=== PATIENT | male | born 1990 | race Caucasian/White ===

== ENCOUNTER 2018-06-14 14:44 | Emergency (ER) | payer BC, OTHER ==
[2018-06-14] MEDS ORDERED: ONDANSETRON INJ 4 MG/2 ML VIAL IV ONE (14:51)
[2018-06-14 14:57] VITALS: TEMP 98
--- NOTE | 2018-06-14 15:37 | ED.PDOC ---
History of Present Illness - General Chief Complaint: Neuro Symptoms/Deficits Stated Complaint: Siezure s/sx Time Seen by Provider: 06/14/18 14:47 Source: patient, family Exam Limitations: no limitations - History of Present Illness Initial Comments: Patient presents after a witnessed seizure. His mother saw him fall to the ground and start shaking. It lasted about 5 minutes. The patient does not remember the event. He has no history of seizures. He has vomited 3 times before presentation and is still nauseous. He denies any pain except a generalized aching headache. Denies photophobia or paresthesias. No other complaints. Timing/Duration: momentarily Severity: moderate Improving Factors: nothing Worsening Factors: nothing Associated Symptoms: nausea/vomiting Allergies/Adverse Reactions: Allergies NO KNOWN ALLERGY Allergy (Verified 06/14/18 14:57) Home Medications: Ambulatory Orders Amphetamine-Dextroamphetamine [Adderall 10 mg] 1 tab PO DAILY 06/14/18 Bupropion HCl [Wellbutrin Xl] 300 mg PO DAILY 06/14/18 Pantoprazole Sodium 40 mg PO DAILY 06/14/18 Venlafaxine HCl [Venlafaxine HCl ER] 225 mg PO DAILY 06/14/18 Review of Systems - Review of Systems Constitutional: States: see HPI EENTM: States: no symptoms reported Respiratory: States: no symptoms reported Cardiology: States: no symptoms reported Gastrointestinal/Abdominal: States: no symptoms reported Genitourinary: States: no symptoms reported Musculoskeletal: States: no symptoms reported Skin: States: no symptoms reported Neurological: States: see HPI Endocrine: States: no symptoms reported Hematologic/Lymphatic: States: no symptoms reported Past Medical History (General) - Patient Medical History Hx Seizures: - Seizure activity, 06/14/18 Hx Stroke: No Hx Congestive Heart Failure: No Hx Diabetes: No Hx MRSA: No - Vaccination History Hx Tetanus, Diphtheria Vaccination: No Hx Influenza Vaccination: No Hx Pneumococcal Vaccination: No - Social History Hx Tobacco Use: No Hx Alcohol Use: No Family Medical History - Family History Father Family History: Unknown Living Status: Still Living Physical Exam - Physical Exam General Appearance: Alert Eye Exam: bilateral normal Ears, Nose, Throat: normal ENT inspection Neck: non-tender, full range of motion, supple Respiratory: lungs clear, normal breath sounds Cardiovascular/Chest: normal peripheral pulses, regular rate, rhythm, no edema Gastrointestinal/Abdominal: normal bowel sounds, non tender, soft Back Exam: normal inspection, no CVA tenderness, no vertebral tenderness Extremity: normal range of motion, non-tender, normal inspection 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, no motor/sensory deficits, alert, normal mood/affect, oriented x 3, other - Cerebellar tests normal Skin Exam: normal color Lymphatic: no adenopathy Progress - Progress Progress: 06/14/18 19:50 Laboratory Tests 06/14/18 06/14/18 06/14/18 15:03 15:03 15:03 WBC 13.1 H RBC 4.85 Hgb 14.4 Hct 44.4 MCV 91.5 MCH 29.7 MCHC 32.5 L RDW 16.2 H Plt Count 475 H MPV 7.0 L Absolute Neuts (auto) 6.00 Absolute Lymphs (auto) 6.00 H Absolute Monos (auto) 0.90 H Absolute Eos (auto) 0.10 Absolute Basos (auto) 0.10 Neutrophils % 45.6 Lymphocytes % 46.2 Monocytes % 6.6 Eosinophils % 1.1 Basophils % 0.5 Sodium 140 Potassium 3.9 Chloride 103 Carbon Dioxide 14 L* Anion Gap 26.9 H BUN 21 H Creatinine 1.48 H BUN/Creatinine Ratio 14.2 Random Glucose 81 Serum Osmolality 281.4 Calcium 9.7 Total Bilirubin 0.4 AST 41 ALT 37 Alkaline Phosphatase 108 Creatine Kinase 165 Serum Total Protein 8.6 H Albumin 4.8 Globulin 3.8 H Albumin/Globulin Ratio 1.3 TSH 2.05 Thyroxine (T4) 6.03 L Urine Color Urine Appearance Urine pH Ur Specific [place] Urine Protein Urine Glucose (UA) Urine Ketones Urine Blood Urine Nitrite Urine Bilirubin Urine Urobilinogen Ur Leukocyte Esterase Urine RBC Urine WBC Ur Epithelial Cells Urine Bacteria Urine Sperm Urine Opiates Screen Urine Barbiturates Ur Phencyclidine Scrn U Amphetamin/Meth Scrn U Benzodiazepines Scrn U Cocaine Metab Screen U Cannabinoids Screen 06/14/18 06/14/18 06/14/18 15:30 15:30 18:54 WBC RBC Hgb Hct MCV MCH MCHC RDW Plt Count MPV Absolute Neuts (auto) Absolute Lymphs (auto) Absolute Monos (auto) Absolute Eos (auto) Absolute Basos (auto) Neutrophils % Lymphocytes % Monocytes % Eosinophils % Basophils % Sodium 138 Potassium 3.7 Chloride 105 Carbon Dioxide 23 Anion Gap 13.7 BUN 20 H Creatinine 1.07 BUN/Creatinine Ratio 18.7 Random Glucose 87 Serum Osmolality 277.7 Calcium 8.8 Total Bilirubin AST ALT Alkaline Phosphatase Creatine Kinase Serum Total Protein Albumin Globulin Albumin/Globulin Ratio TSH Thyroxine (T4) Urine Color Yellow Urine Appearance Clear Urine pH 5.5 Ur Specific [place] >= 1.030 Urine Protein Trace Urine Glucose (UA) Negative Urine Ketones Trace Urine Blood Trace-intact H Urine Nitrite Negative Urine Bilirubin Negative Urine Urobilinogen 0.2 Ur Leukocyte Esterase Negative Urine RBC 1-3 Urine WBC 1-3 Ur Epithelial Cells 0 Urine Bacteria Rare Urine Sperm 3-5 Urine Opiates Screen Negative Urine Barbiturates Negative Ur Phencyclidine Scrn Negative U Amphetamin/Meth Scrn Positive H U Benzodiazepines Scrn Negative U Cocaine Metab Screen Negative U Cannabinoids Screen Negative CT head negative. Bicarbonate was low, likely due to a temporary lactic acid buildup during the seizure. Patient was given one liter IV NS x one. Labs returned to normal. Repeat neurological exam was normal. GCS 15. Patient told to stop taking the Wellbutrin and contact his regular doctor in the morning. Care instructions given. E.R. warnings given. Questions were elicited and answered. The patient voiced understanding and agreement with the plan. Departure - Departure Clinical Impression: Seizure Disposition: Discharge to Home or Self Care Condition: Good Departure Forms: ED Discharge - Pt. Copy, Patient Portal Self Enrollment Diet: resume usual diet Activity: increase activity as tolerated Referrals: Geronimo Lawler MD [Primary Care Provider] - 1-2 Weeks Home Medications: Ambulatory Orders Amphetamine-Dextroamphetamine [Adderall 10 mg] 1 tab PO DAILY 06/14/18 Bupropion HCl [Wellbutrin Xl] 300 mg PO DAILY 06/14/18 Pantoprazole Sodium 40 mg PO DAILY 06/14/18 Venlafaxine HCl [Venlafaxine HCl ER] 225 mg PO DAILY 06/14/18 Additional Instructions: Stop the buproprion (Wellbutrin). Call your primary physician in the morning and get an appointment as soon as possible. Return to the E.R. immediately for any further seizure activity.
--- NOTE | 2018-06-14 15:58 | RAD ---
EXAM DESCRIPTION: Chest,2 Views CLINICAL HISTORY: 28 years Male, loss of consciousness COMPARISON: None. FINDINGS: Chest radiographs show an unremarkable cardiomediastinal silhouette. The lungs appear clear. Regional bony structures appear intact as visualized. IMPRESSION: Unremarkable chest, with no evidence of acute cardiopulmonary disease. Electronically signed by: Rigoberto Witt MD 06/14/2018 3:55 PM [facility]
--- NOTE | 2018-06-14 15:59 | CT ---
EXAM DESCRIPTION: Head CLINICAL HISTORY: new onet seizure COMPARISON: None Available TECHNIQUE: Contiguous axial CT images of the head were obtained. Coronal and sagittal reconstructions were created from the axial data. This exam was performed according to our departmental dose-optimization program, which includes automated exposure control, adjustment of the mA and/or kV according to patient size and/or use of iterative reconstruction technique. FINDINGS: There is no evidence of acute mass, mass effect, midline shift or hemorrhage. The ventricles and extra-axial CSF spaces are unremarkable. The brain parenchyma appears normal for the patient's age. No acute abnormalities of the bones is seen. IMPRESSION: No acute intracranial abnormality. Electronically signed by: Zachariah Horne 06/14/2018 3:55 PM DIRECTOR OF FRONT OFFICE
--- NOTE | 2018-06-14 16:01 | CT ---
EXAM DESCRIPTION: CT CERVICAL SPINE CLINICAL HISTORY: fall COMPARISON: None Available. TECHNIQUE: Contiguous axial images of the cervical spine were obtained followed by reconstruction images.This exam was performed according to our departmental dose-optimization program, which includes automated exposure control, adjustment of the mA and/or kV according to patient size and/or use of iterative reconstruction technique. FINDINGS: There is no acute fracture or subluxation. The prevertebral soft tissues are within normal limits. IMPRESSION: No acute fracture or subluxation. Electronically signed by: Zachariah Horne 06/14/2018 3:58 PM [facility]
[2018-06-14] MEDS ORDERED: SODIUM CHLORIDE 0.9% 1000ML 1,000 ML IVS ONE (16:12)
[2018-06-14 20:11] VITALS: BP 125/88; O2SAT 97
== END 2018-06-14 20:08 | disposition home or self-care (01) ==
LOC: ER 14:44
DX: R56.9 Unspecified convulsions (principal); R11.2 Nausea with vomiting, unspecified; R51 Headache; Z79.899 Other long term (current) drug therapy
CPT/HCPCS: 36415; 70450; 71046; 72125; 80048; 80053; 80307; 81001; 82550; 84436; 84443; 85025; 93005; J7030

== ENCOUNTER → 2019-03-01 | Outpatient (CLI) | payer BC | LOC: GMAJS 11:44 | PROVIDERS: ATTEND Physician Assistant | DX: R94.8 Abnormal results of function studies of other organs and systems (principal) ==

== ENCOUNTER → 2019-05-17 | Outpatient (CLI) | payer BC | LOC: GMAE 14:48 | PROVIDERS: ATTEND Family Medicine | DX: D50.9 Iron deficiency anemia, unspecified (principal) ==

== ENCOUNTER 2019-10-07 22:26 | Emergency (ER) | payer BC ==
[2019-10-07 22:39] VITALS: TEMP 98.3
[2019-10-07] MEDS: SODIUM CHLORIDE 0.9% 1000ML 1,000 ML IVS ONE (22:47)
[2019-10-07] MEDS: ONDANSETRON INJ 4 MG/2 ML VIAL IV ONE (22:48)
--- NOTE | 2019-10-07 22:48 | ED.PDOC ---
History of Present Illness - General Chief Complaint: Neuro Symptoms/Deficits Time Seen by Provider: 10/07/19 22:35 Additional Information: Patient is a 29-year-old male who presents to the ED with his mother via private automobile with chief complaint of seizure just prior to arrival. Patient has a relatively new seizure diagnosis dating back approximately 1 year. Patient was seen in the ED for his previous seizure and had a normal head CT per mom but no diagnosis other than seizure was ever given. Mother indicates he has had 2 seizures that she knows of prior to this episode over the past several months. Today patient was playing video games sitting in his chair when his mother and father noted patient to have rhythmic tonic clonic activity. Patient's father went to the patient and braced him in the chair so that he would not injure himself and after approximately 5 minutes patient seizure stopped spontaneously. Mother denies any injury. Following the seizure patient was unresponsive and sleepy and parents placed him in the car and drove him to the ED. Patient's past medical history per mom is seizure, depression and reflux. She does not believe he takes any illicit street drugs. Patient is not on any antiseizure medications and mom indicates that patient has never seen a neurologist in the past because "he has never been told he needs one or referred to one". - History of Present Illness Allergies/Adverse Reactions: Allergies NO KNOWN ALLERGY Allergy (Verified 06/14/18 14:57) Home Medications: Ambulatory Orders Pantoprazole Sodium 40 mg PO DAILY 06/14/18 DULoxetine HCL [Cymbalta] 20 mg PO 10/07/19 Review of Systems - Review of Systems Unable to Obtain Due To: condition Past Medical History (General) - Patient Medical History Hx Seizures: Yes Hx Stroke: No Hx Dementia: No Hx Asthma: No Hx of COPD: No Hx Cardiac Disorders: No Hx Congestive Heart Failure: No Hx Pacemaker: No Hx Hypertension: No Hx Thyroid Disease: No Hx Diabetes: No Hx Gastroesophageal Reflux: Yes Hx Renal Disease: No Hx Cancer: No Hx of HIV: No Hx Hepatitis C: No Hx MRSA: No Surgical History: no surgical history - Vaccination History Hx Tetanus, Diphtheria Vaccination: No Hx Influenza Vaccination: No Hx Pneumococcal Vaccination: No Immunizations Up to Date: No - Social History Hx Tobacco Use: No Hx Chewing Tobacco Use: No Hx Alcohol Use: No Hx Substance Use: No Hx Substance Use Treatment: No Hx Depression: No Feels Threatened In Home Enviroment: No Feels Threatened In a Relationship: No Hx Physical Abuse: No Hx Emotional Abuse: No Hx Suspected Abuse: No - Female History Patient is a Female of Child Bearing Age (10 -59 yrs old): No Family Medical History - Family History Father Family History: Unknown Living Status: Still Living Physical Exam - Physical Exam General Appearance: Obese, Other - Patient is obtunded and postictal. He arouses to light sternal rub and then falls back asleep. Eye Exam: left normal ENT Exam: normal ENT inspection, pharynx normal Respiratory: chest non-tender, lungs clear, normal breath sounds, no respiratory distress, no accessory muscle use Cardiovascular/Chest: normal peripheral pulses, no edema, no gallop, no JVD, no murmur, tachycardia Peripheral Pulses: radial,right: 2+, radial,left: 2+ Gastrointestinal/Abdominal: normal bowel sounds, non tender, soft, no organomegaly Extremities Exam: non-tender Mental Status: other - Patient is oriented to person only, not to place or time. 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 Coordination/Gait: other - Unable to assess cerebellar function. Motor/Sensory: other - Patient moves all extremities to stimulus. Skin Exam: normal color, warm/dry Progress - Progress Progress: 10/07/19 22:5 Differential diagnosis includes but is not limited to breakthrough seizure, illicit substance abuse, electrolyte disorder, neoplasm 10/07/19 23:01 Patient is becoming particularly restless. Will give Ativan for agitation and to facilitate nursing collection of required tests. 10/08/19 00:20 Patient remains awake and agitated and he is slightly more coherent, answering simple questions but he is still grossly confused. Patient's head CT is unremarkable. Patient's WBC is 14.6 but patient has no fever and clinically I suspect this is a stress response to the seizure. Patient's electrolytes are abnormal with an elevated anion gap and decreased CO2. Patient's glucose is 167 and mom indicates that patient does not have a known history of diabetes but he does not see a doctor. 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 Patient's glucose level does not meet the definition of DKA but I have treated patient with 2 L of IV fluid and given him subcutaneous insulin. Patient will need transfer to a higher level of care for neurologist consultation for recurrent seizures that have not been evaluated, and for evaluation and treatment of possible DKA but at the very least new onset diabetes. Patient's heart rate is down into the low 100s and his blood pressure stable, patient is medically clear for transfer when accepted. 10/08/19 00:33 Nursing tells me that patient's repeat glucose fingerstick is now 67 and this is before he has received any insulin. Patient is not in DKA and most likely does not have diabetes but he is still very confused and not talking. I discussed case with Dr. Miguel at [facility] ED and he accepts patient in ED to ED transfer. - EKG/XRAY/CT Comments: EKG: Sinus tachycardia, rate 126, normal axis, normal QRS, normal ST and T Departure - Departure Clinical Impression: Seizure, Post-ictal state Disposition: Discharge to Home or Self Care Condition: Fair Departure Forms: ED Discharge - Pt. Copy, Patient Portal Self Enrollment Home Medications: Ambulatory Orders Pantoprazole Sodium 40 mg PO DAILY 06/14/18 DULoxetine HCL [Cymbalta] 20 mg PO 10/07/19 Transfer to Outside Facility - Transfer Information Decision to Transfer Date: 10/08/19 Decision to Transfer Time: 00:26 Reason for Transfer: required specialist not available
--- NOTE | 2019-10-07 23:39 | CT ---
EXAM: CT head without IV contrast CLINICAL DATA: 29-year-old male status post seizure TECHNICAL DATA: Multiple axial CT images of the brain were performed followed by sagittal and coronal reconstructed images. The CT study is performed according to ALARA (as low as reasonably achievable) or ALARA/IMAGE GENTLY, with automatic adjustment of mA and/or kV according to patient size. Performed on: 10/07/2019 at 11:21 PM Comparisons: 06/14/2018. FINDINGS: There is no evidence of mass, acute mass effect or midline shift. There are no acute extra-axial fluid collections. There is no evidence of acute intracranial hemorrhage. The cerebral sulci and ventricles are normal in size and configuration. There are no focal abnormal areas of increased or decreased attenuation. There is no significant mucosal thickening of the paranasal sinuses. The mastoid air cells are clear. The orbital contents are grossly unremarkable. No acute osseous abnormalities are identified. No focal soft tissue abnormalities are identified. IMPRESSION: There is no evidence of acute intracranial pathology. Electronically signed by: Amy Hill DO 10/07/2019 11:38 PM CDT
[2019-10-08] MEDS ORDERED: INSULIN, REG.(HUMAN) 100 U/ML VIAL SUBCU ONE (00:17)
[2019-10-08 00:42] VITALS: BP 131/90; O2SAT 100
[2019-10-08] MEDS: SODIUM CHLORIDE 0.9% 1000ML 1,000 ML IVS ONE (00:53)
== END 2019-10-08 01:08 | disposition home or self-care (01) ==
LOC: ER 22:26
DX: R56.9 Unspecified convulsions (principal); R00.0 Tachycardia, unspecified; E66.9 Obesity, unspecified
CPT/HCPCS: 36415; 70450; 80053; 80307; 80320; 81001; 85025; 87040; 93005; J2060; J2405; J7030